=== PATIENT | male | born 1950 | race African-American/Black ===

== ENCOUNTER 2017-11-18 11:21 | Inpatient (IN) ==
[2017-11-18] MEDS ORDERED: SODIUM CHLORIDE 0.9% 500 ML IV STA (13:02)
[2017-11-18] MEDS ORDERED: ADENOSINE 6 MG/2 ML VIAL ONE (13:22)
[2017-11-18 13:28] LABS: Basophils % 0.2 % (0.0-0.8); Eosinophils % 0.1 % (0.00-10.9); Hemoglobin 12.6 GM/DL (14.0-18.0); Immature Granulocytes % 0.5 %; Immature Granulocytes Absolute 0.11 #; Lymphocytes # 1.9 10*3/uL (1.4-4.0); Lymphocytes % 8.2 % (21.2-54.2); Mean Corpuscular Hemoglobin 29 PG (27-34); Mean Corpuscular Volume 81.4 FL (87-102); Mean Platelet Volume 11.2 FL (9.6-12.0); Monocytes # 1.3 10*3/uL (0.11-0.8); Monocytes % 5.4 % (1.7-12.7); Neutrophils # 19.7 10*3/uL (1.4-7.4); Neutrophils % 85.6 % (38.7-73.9); Platelet Count 271 T/CUMM (130-400); Red Blood Count 4.42 MC/CUMM (3.8-5.5); Red Cell Distribution Width 14.5 % (9.3-17.3)
[2017-11-18 13:34] LABS: INR 1.2; PT Patient Result 12.1 SECS; Partial Thromboplastin Time 33.6 SECS (0-40)
[2017-11-18] MEDS ORDERED: AZITHROMYCIN INJ 500 MG in SODIUM CHLORIDE 0.9% 250 ML IV STA (13:35)
[2017-11-18] MEDS ORDERED: ADENOSINE 6 MG/2 ML VIAL IV STA (13:35)
[2017-11-18] MEDS ORDERED: cefTRIAXone 1,000 MG in SODIUM CHLORIDE 0.9% 100 ML IV STA (13:35)
[2017-11-18] MEDS ORDERED: LACTATED RINGERS 1,000 ML IV ONE (13:37)
[2017-11-18 13:43] LABS: Lactic Acid 2.3 MMOL/L (0.4-2.0)
[2017-11-18 13:47] LABS: Alanine Aminotransferase 20 U/L (16-61); Albumin 3.3 G/DL (3.4-5.0); Alkaline Phosphatase 95 U/L (45-117); Aspartate Amino Transferase 20 U/L (0-37); Blood Urea Nitrogen 20 MG/DL (7-18); Calcium 8.9 MG/DL (8.5-10.1); Glucose 222 MG/DL (74-106); Lymphocytes 12 % (20-55); Osmolality,Calculated 286.5 MOS/KG (273-304); Platelet Estimate Adequate; Potassium 4.3 MMOL/L (3.5-5.1); Segmented Neutrophils 85 % (50-85); Sodium 139 MMOL/L (136-145); Total Cells Counted 100; Troponin I Only < 0.015 NG/ML (0.00-0.045)
[2017-11-18] MEDS ORDERED: SODIUM CHLORIDE 0.9% 2,700 ML IV ONE (15:01)
[2017-11-18 15:23] LABS: Risk Ratio 2.43
[2017-11-18] MEDS ORDERED: ACETAMINOPHEN 325 MG TABLET PO PRN (15:34)
[2017-11-18] MEDS ORDERED: ALBUTEROL 2.5 MG/3 ML NEB RESP TX PRN ×2 (15:34)
[2017-11-18] MEDS ORDERED: GLUCAGON 1 MG VIAL IM PRN (15:34)
[2017-11-18] MEDS ORDERED: DEXTROSE 50% 25 GM/50 ML VIAL IV PRN (15:34)
[2017-11-18] MEDS ORDERED: AZITHROMYCIN 500 MG VIAL IV ONE (17:02)
[2017-11-18 17:53] LABS: Alanine Aminotransferase 14 U/L (16-61); Alkaline Phosphatase 86 U/L (45-117); Aspartate Amino Transferase 13 U/L (0-37); Blood Urea Nitrogen 18 MG/DL (7-18); Calcium 8.5 MG/DL (8.5-10.1); Glucose 141 MG/DL (74-106); Osmolality,Calculated 286.1 MOS/KG (273-304); Potassium 4.1 MMOL/L (3.5-5.1); Sodium 142 MMOL/L (136-145); Total Protein 7.4 G/DL (6.4-8.3)
[2017-11-18 18:02] LABS: Lactic Acid 2.2 MMOL/L (0.4-2.0)
[2017-11-18] MEDS: PANTOPRAZOLE 40 MG VIAL IV SCH (18:15)
[2017-11-18] MEDS: ENOXAPARIN 40 MG/0.4 ML SYRINGE SUBCUT SCH (18:15)
[2017-11-18] MEDS: INSULIN REGULAR 100 UNIT/ML SUBCUT SCH ×3 (18:38→20:55)
[2017-11-18 18:40] LABS: Apearance,Urine CLEAR (Clear); Bilirubin,Urine Negative (Negative); Blood, Urine Negative (Negative); Glucose,Urine (UA) Negative (Negative); Ketones,Urine Negative (Negative); Mucus,Urine Occasional /LPF (Occasional); Nitrite,Urine Negative (Negative); Protein,Urine Negative; RBC,Urine 1 /HPF (0-4); Squamous Epithelial Cell,Urine Occasional /HPF (0-10); Urine Color Yellow (Yellow); Urine Urobilinogen < 2.0 EU/DL (0.2-1.0); WBC,Urine 1 /HPF (0-6)
[2017-11-18] MEDS: ALBUTEROL/IPRATROPIUM 3 ML NEB RESP TX SCH (19:39)
[2017-11-18] MEDS: GABAPENTIN 600 MG TABLET PO SCH (20:53)
[2017-11-19] MEDS: ALBUTEROL/IPRATROPIUM 3 ML NEB RESP TX SCH ×4 (00:36→19:21)
[2017-11-19 04:39] LABS: Basophils % 0.2 % (0.0-0.8); Eosinophils # 0.3 10*3/uL (0.0-0.87); Eosinophils % 2.1 % (0.00-10.9); Hematocrit 28.5 VOL% (42.0-52.0); Hemoglobin 9.9 GM/DL (14.0-18.0); Immature Granulocytes % 0.3 %; Immature Granulocytes Absolute 0.05 #; Lymphocytes # 2.7 10*3/uL (1.4-4.0); Lymphocytes % 18.5 % (21.2-54.2); Mean Corpuscular HGB Conc 34.7 GM/DL (32-36); Mean Corpuscular Hemoglobin 28 PG (27-34); Mean Corpuscular Volume 81.2 FL (87-102); Mean Platelet Volume 11.2 FL (9.6-12.0); Monocytes # 1.2 10*3/uL (0.11-0.8); Neutrophils # 10.2 10*3/uL (1.4-7.4); Neutrophils % 70.9 % (38.7-73.9); Platelet Count 213 T/CUMM (130-400); Red Blood Count 3.51 MC/CUMM (3.8-5.5); Red Cell Distribution Width 14.3 % (9.3-17.3); White Blood Count 14.3 T/CUMM (4-12)
[2017-11-19 05:14] LABS: Calcium 7.9 MG/DL (8.5-10.1); Potassium 3.4 MMOL/L (3.5-5.1)
[2017-11-19] MEDS: VENLAFAXINE 75 MG TABLET PO SCH (09:43)
[2017-11-19] MEDS: INSULIN REGULAR 100 UNIT/ML SUBCUT SCH ×5 (09:43→21:31)
[2017-11-19] MEDS: GABAPENTIN 600 MG TABLET PO SCH ×2 (09:43→21:32)
[2017-11-19] MEDS ORDERED: POTASSIUM CHLORIDE 20 MEQ TABLET PO PRN (09:59)
[2017-11-19] MEDS: METOPROLOL TARTRATE 25 MG TABLET PO SCH ×2 (10:25→21:32)
[2017-11-19] MEDS: PANTOPRAZOLE 40 MG VIAL IV SCH (15:38)
[2017-11-19] MEDS: cefTRIAXone 1,000 MG in SYRINGE 1 EACH IV SCH (15:46)
[2017-11-19] MEDS: AZITHROMYCIN INJ 500 MG in SODIUM CHLORIDE 0.9% 250 ML IV SCH (15:47)
[2017-11-19] MEDS: ENOXAPARIN 40 MG/0.4 ML SYRINGE SUBCUT SCH (15:47)
[2017-11-20] MEDS: ALBUTEROL/IPRATROPIUM 3 ML NEB RESP TX SCH ×4 (00:02→19:40)
[2017-11-20 05:02] LABS: Basophils % 0.3 % (0.0-0.8); Eosinophils # 0.4 10*3/uL (0.0-0.87); Eosinophils % 4.3 % (0.00-10.9); Hematocrit 27.4 VOL% (42.0-52.0); Hemoglobin 9.5 GM/DL (14.0-18.0); Immature Granulocytes % 0.1 %; Immature Granulocytes Absolute 0.01 #; Lymphocytes # 2.7 10*3/uL (1.4-4.0); Lymphocytes % 31.1 % (21.2-54.2); Mean Corpuscular HGB Conc 34.7 GM/DL (32-36); Mean Corpuscular Hemoglobin 28 PG (27-34); Mean Platelet Volume 10.7 FL (9.6-12.0); Monocytes # 0.8 10*3/uL (0.11-0.8); Monocytes % 9.1 % (1.7-12.7); Neutrophils # 4.9 10*3/uL (1.4-7.4); Neutrophils % 55.1 % (38.7-73.9); Platelet Count 211 T/CUMM (130-400); Red Blood Count 3.34 MC/CUMM (3.8-5.5); Red Cell Distribution Width 14.2 % (9.3-17.3); White Blood Count 8.8 T/CUMM (4-12)
[2017-11-20 05:30] LABS: Calcium 8.3 MG/DL (8.5-10.1); Osmolality,Calculated 285.8 MOS/KG (273-304); Potassium 4.1 MMOL/L (3.5-5.1)
[2017-11-20] MEDS: INSULIN REGULAR 100 UNIT/ML SUBCUT SCH ×4 (10:11→20:19)
[2017-11-20] MEDS: VENLAFAXINE 75 MG TABLET PO SCH (10:12)
[2017-11-20] MEDS: GABAPENTIN 600 MG TABLET PO SCH ×2 (10:12→20:18)
[2017-11-20] MEDS: ASPIRIN EC 81 MG TABLET PO SCH (10:15)
[2017-11-20] MEDS: cefTRIAXone 1,000 MG in SYRINGE 1 EACH IV SCH (15:07)
[2017-11-20] MEDS: AZITHROMYCIN INJ 500 MG in SODIUM CHLORIDE 0.9% 250 ML IV SCH (15:17)
[2017-11-20] MEDS: PANTOPRAZOLE 40 MG VIAL IV SCH (16:14)
[2017-11-20] MEDS: ENOXAPARIN 40 MG/0.4 ML SYRINGE SUBCUT SCH (16:14)
[2017-11-20] MEDS ORDERED: METOPROLOL TARTRATE 5 MG/5 ML VIAL IV ONE ×2 (19:00→19:05)
[2017-11-20] MEDS ORDERED: METOPROLOL TARTRATE 25 MG TABLET PO SCH (21:00)
[2017-11-21] MEDS: ALBUTEROL/IPRATROPIUM 3 ML NEB RESP TX SCH ×4 (01:00→18:58)
[2017-11-21 04:52] LABS: Basophils % 0.3 % (0.0-0.8); Eosinophils # 0.4 10*3/uL (0.0-0.87); Eosinophils % 4.4 % (0.00-10.9); Hematocrit 29.3 VOL% (42.0-52.0); Hemoglobin 10.6 GM/DL (14.0-18.0); Immature Granulocytes % 0.3 %; Immature Granulocytes Absolute 0.03 #; Lymphocytes # 2.8 10*3/uL (1.4-4.0); Lymphocytes % 31.4 % (21.2-54.2); Mean Corpuscular HGB Conc 36.2 GM/DL (32-36); Mean Corpuscular Hemoglobin 29 PG (27-34); Mean Corpuscular Volume 79.2 FL (87-102); Mean Platelet Volume 11.7 FL (9.6-12.0); Monocytes # 0.8 10*3/uL (0.11-0.8); Monocytes % 9.3 % (1.7-12.7); Neutrophils # 4.9 10*3/uL (1.4-7.4); Neutrophils % 54.3 % (38.7-73.9); Platelet Count 261 T/CUMM (130-400); Red Cell Distribution Width 14.5 % (9.3-17.3); White Blood Count 8.9 T/CUMM (4-12)
[2017-11-21 05:36] LABS: Calcium 8.7 MG/DL (8.5-10.1); Osmolality,Calculated 282.1 MOS/KG (273-304); Potassium 3.7 MMOL/L (3.5-5.1)
[2017-11-21] MEDS: METOPROLOL TARTRATE 50 MG TABLET PO SCH ×2 (09:26→21:49)
[2017-11-21] MEDS: AZITHROMYCIN 250 MG TABLET PO SCH (09:26)
[2017-11-21] MEDS: GABAPENTIN 600 MG TABLET PO SCH ×2 (09:26→21:42)
[2017-11-21] MEDS: ASPIRIN EC 81 MG TABLET PO SCH (09:26)
[2017-11-21] MEDS: VENLAFAXINE 75 MG TABLET PO SCH (09:27)
[2017-11-21] MEDS: INSULIN REGULAR 100 UNIT/ML SUBCUT SCH ×4 (09:27→21:49)
[2017-11-21] MEDS: cefTRIAXone 1,000 MG in SYRINGE 1 EACH IV SCH (13:44)
[2017-11-21] MEDS: ENOXAPARIN 40 MG/0.4 ML SYRINGE SUBCUT SCH (16:30)
[2017-11-21] MEDS: PANTOPRAZOLE 40 MG VIAL IV SCH (16:30)
[2017-11-21] MEDS: oxyCODONE/ACETAMINOPHEN 5-325 MG TABLET PO PRN (17:11)
[2017-11-22] MEDS: ALBUTEROL/IPRATROPIUM 3 ML NEB RESP TX SCH ×2 (00:12→06:55)
[2017-11-22 05:41] LABS: Basophils % 0.4 % (0.0-0.8); Eosinophils # 0.5 10*3/uL (0.0-0.87); Eosinophils % 5.1 % (0.00-10.9); Hematocrit 29.7 VOL% (42.0-52.0); Hemoglobin 10.3 GM/DL (14.0-18.0); Immature Granulocytes % 0.4 %; Immature Granulocytes Absolute 0.04 #; Lymphocytes # 2.2 10*3/uL (1.4-4.0); Lymphocytes % 22.2 % (21.2-54.2); Mean Corpuscular HGB Conc 34.7 GM/DL (32-36); Mean Corpuscular Hemoglobin 29 PG (27-34); Mean Platelet Volume 11.3 FL (9.6-12.0); Monocytes # 0.8 10*3/uL (0.11-0.8); Neutrophils # 6.4 10*3/uL (1.4-7.4); Neutrophils % 63.9 % (38.7-73.9); Platelet Count 256 T/CUMM (130-400); Red Blood Count 3.62 MC/CUMM (3.8-5.5); Red Cell Distribution Width 14.2 % (9.3-17.3)
[2017-11-22 06:15] LABS: Potassium 3.8 MMOL/L (3.5-5.1)
[2017-11-22] MEDS: INSULIN REGULAR 100 UNIT/ML SUBCUT SCH (08:57)
[2017-11-22] MEDS: GABAPENTIN 600 MG TABLET PO SCH (08:57)
[2017-11-22] MEDS: VENLAFAXINE 75 MG TABLET PO SCH (08:57)
[2017-11-22] MEDS: AZITHROMYCIN 250 MG TABLET PO SCH (08:57)
[2017-11-22] MEDS: METOPROLOL TARTRATE 50 MG TABLET PO SCH (08:57)
[2017-11-22] MEDS: ASPIRIN EC 81 MG TABLET PO SCH (08:57)
[2017-11-22] MEDS: oxyCODONE/ACETAMINOPHEN 5-325 MG TABLET PO PRN (09:00)
[2017-11-22] MEDS ORDERED: LOSARTAN 50 MG TABLET PO SCH (09:00)
[2017-11-22 10:23] VITALS: BP 158/62
== END 2017-11-22 10:21 | disposition home or self-care (01) | DRG 308 ==
LOC: N.ED 11:21 → N.EDINP 14:58 → SUATTDRO 14:58 → N.ICU 15:30 → N.TELES 16:39
PROVIDERS: ADMIT Family Medicine; ATTEND Internal Medicine